=== PATIENT | female | born 1945 | race Hispanic/Latino ===

== ENCOUNTER 2019-01-27 19:35 | Emergency (ER) | payer MEDICARE, BC, MEDICAID ==
[2019-01-27 20:07] LABS: #Basophils 0.1 thou/uL (0.0-0.2); #Eosinphils 0.3 thou/uL (0.0-0.7); #Lymphocytes 2.8 thou/uL (1.20-3.40); #Monocytes 0.6 thou/uL (0.11-0.59); #Neutrophils 4.9 thou/uL (1.40-6.50); %Basophils 0.7 % (0.0-1.0); %Lymphocytes 32.3 % (21.0-51.0); Hemoglobin 13.8 g/dL (12.0-16.0); Mean Corpuscular HGB CONC 33.1 g/dL (32.0-36.0); Mean Corpuscular Hemoglobin 30.7 pg (27.0-31.0); Mean Corpuscular Volume 92.6 fL (78.0-98.0); Mean Platelet Volume 7.3 fL (7.4-10.4); Platelet Count 236 thou/uL (130-400); RBC Distribution Width 12.6 % (11.5-14.5); Red Blood Cell (RBC) Count 4.49 mill/uL (4.20-5.40); White Blood Cell (WBC) Count 8.7 thou/uL (4.8-10.8)
[2019-01-27 20:29] LABS: ALT (SGPT) 15 U/L (8-55); AST (SGOT) 17 U/L (5-34); Albumin 4.3 g/dL (3.4-4.8); Alkaline Phosphatase 116 U/L (40-150); Anion Gap 11 mmol/L (10-20); BUN (Urea Nitrogen) 17 mg/dL (9.8-20.1); Bilirubin, Total 0.3 mg/dL (0.2-1.2); Calc. Creatinine Clearance 0 mL/min (70-130); Calcium 9.7 mg/dL (7.8-10.44); Carbon Dioxide 29 mmol/L (23-31); Chloride 101 mmol/L (98-107); Estimated GFR-MDRD 70; Globulin 3.2 g/dL (2.4-3.5); Glucose 102 mg/dL (83-110); Potassium 3.6 mmol/L (3.5-5.1); Protein, Total 7.5 g/dL (6.0-8.3); Sodium 137 mmol/L (136-145)
[2019-01-27] MEDS ORDERED: Meclizine HCl 25 MG TAB ONE ×2 (20:40→21:54)
[2019-01-27] MEDS ORDERED: Ondansetron ODT 4 MG TAB ONE (20:40)
[2019-01-27] MEDS ORDERED: Acetaminophen 500 MG TAB ONE (20:41)
--- NOTE | 2019-01-27 20:57 | CT ---
CT Brain WO Con: 01/27/2019 8:33 PM CLINICAL HISTORY: Emergency exam, nausea vomiting dizziness. COMPARISON: None. FINDINGS: Hemorrhage: None. Ventricular system: Normal in size and morphology for the patient's age. Cerebral parenchyma: There is nonspecific punctate calcification of the right cerebral hemisphere Midline shift: None. Mass: No mass effect. Calvarium: Normal. Visualized Paranasal sinuses: Scattered mild inflammatory mucosal thickening. IMPRESSION: No acute intracranial hemorrhage or mass effect. Nonspecific punctate calcifications of the right cerebral hemisphere. Recommend follow-up with pre an d postcontrast brain MRI on a nonemergent basis for further evaluation.
== END 2019-01-27 22:46 | disposition home or self-care (01) ==
LOC: ERS 19:35
DX: R42 Dizziness and giddiness (principal); E78.00 Pure hypercholesterolemia, unspecified; I10 Essential (primary) hypertension; E03.9 Hypothyroidism, unspecified; R11.2 Nausea with vomiting, unspecified; Z79.52 Long term (current) use of systemic steroids; Z79.51 Long term (current) use of inhaled steroids
CPT/HCPCS: 36415; 70450; 80053; 84484; 85025; 93005; J8597; Q0162